=== PATIENT | male | born 1990 | race Hispanic/Latino ===

== ENCOUNTER 2018-03-07 07:53 | Inpatient (IN) | payer BC ==
[2018-03-07 08:57] LABS: BASO # 0.1 K/uL (0.0-0.2); BASO % 0.6 % (0.0-2.0); EOS # 0.2 K/uL (0.0-0.7); EOS % 1.2 % (0.0-4.0); HEMOGLOBIN 14.4 g/dL (12.0-18.0); LYMPH # 1.3 K/uL (1.0-4.3); MEAN CELL VOLUME 86.3 fL (80.0-94.0); MEAN CORPUSCULAR HEMOGLOBIN 29.5 pg (27.0-31.0); MEAN CORPUSCULAR HGB CONC 34.1 g/dL (33.0-37.0); MEAN PLATELET VOLUME 8.5 fL (7.2-11.7); MONO % 6.8 % (0.0-10.0); NEUT # 12.2 K/uL (1.8-7.0); NEUT % 82.4 % (50.0-75.0); PLATELET COUNT 290 K/uL (130-400); RBC 4.91 Mil/uL (4.40-5.90); RED CELL DISTRIBUTION WIDTH 12.6 % (11.5-14.5); WHITE BLOOD COUNT 14.8 K/uL (4.8-10.8)
[2018-03-07 09:32] LABS: ALB/GLOB RATIO 1.2 (1.0-2.1); ALBUMIN 4.6 g/dL (3.5-5.0); ALT/SGPT 38 U/L (21-72); AST/SGOT 30 U/L (17-59); BLOOD UREA NITROGEN 18 mg/dL (9-20); CALCIUM 9.2 mg/dl (8.6-10.4); GFR AFRICAN-AMERICAN > 60; GFR NON-AFRICAN AMERICAN > 60; LIPASE 81 U/L (23-300)
[2018-03-07] MEDS ORDERED: Piperacillin/Tazobact 3.375 GM in Sodium Chloride 100 ML IVPB STA (09:33)
--- NOTE | 2018-03-07 09:34 | CT ---
PROCEDURE: CT Abdomen and Pelvis without intravenous contrast HISTORY: abd pain COMPARISON: None. TECHNIQUE: Without contrast.. Contrast Dose: 0 Radiation dose: Total exam DLP = Total exam DLP = 555.26 mGy-cm. This CT exam was performed using one or more of the following dose reduction techniques: Automated exposure control, adjustment of the mA and/or kV according to patient size, and/or use of iterative reconstruction technique. FINDINGS: LOWER THORAX: Unremarkable. LIVER: Unremarkable. No gross lesion or ductal dilatation. GALLBLADDER AND BILE DUCTS: Unremarkable. PANCREAS: Unremarkable. No gross lesion or ductal dilatation. SPLEEN: Unremarkable. ADRENALS: Unremarkable. No mass. KIDNEYS AND URETERS: Unremarkable. No hydronephrosis. No solid mass. VASCULATURE: Unremarkable. No aortic aneurysm. BOWEL: Unremarkable. No obstruction. No gross mural thickening. APPENDIX: The appendix is distended up to 9 mm. There is mild periappendiceal inflammatory change particularly about the proximal aspect of the appendix. The findings are consistent with acute appendicitis. There is no periappendiceal abscess. There is no free intraperitoneal air. There is no calcified appendicolith identified. PERITONEUM: Unremarkable. No free fluid. No free air. LYMPH NODES: Unremarkable. No enlarged lymph nodes. BLADDER: Poorly distended REPRODUCTIVE: Unremarkable prostate BONES: No acute fracture. OTHER FINDINGS: None. IMPRESSION: Findings consistent with acute uncomplicated appendicitis. No periappendiceal abscess. No free air. No additional abnormality. The findings this examination were discussed by telephone with Dr. Way at 9:30 a.m. on 03/07/2018.
[2018-03-07 09:37] LABS: EOSINOPHIL 1 % (0-4); LYMPHOCYTE 6 % (20-40); MONOCYTE 3 % (0-10); NEUTROPHIL 90 % (50-75); PLATELET ESTIMATE NORMAL (NORMAL); TOTAL CELLS COUNTED 100
[2018-03-07 09:40] LABS: URINE BILIRUBIN NEGATIVE (NEGATIVE); URINE BLOOD NEGATIVE (NEGATIVE); URINE CLARITY Clear (Clear); URINE COLOR Yellow (YELLOW); URINE GLUCOSE (UA) NORMAL (Normal); URINE LEUKOCYTE ESTERASE NEG Leu/uL (Negative); URINE PROTEIN NEGATIVE (NEGATIVE)
--- NOTE | 2018-03-07 09:41 | C.PDOC ---
History Of Present Illness 27-year-old male, presents to the emergency department with complaints of right- lower quadrant abdominal pain x5 hours, associated with nausea. Patient denies symptoms, fever, testicular pain, or any other associated symptoms. No other complaints at this time. Time Seen by Provider: 03/07/18 08:25 Chief Complaint (Nursing): Abdominal Pain History Per: Patient History/Exam Limitations: no limitations Location Of Pain/Discomfort: RLQ Past Medical History Reviewed: Historical Data, Nursing Documentation, Vital Signs Vital Signs: Last Vital Signs Temp 99.3 F 03/07/18 08:05 Pulse 88 03/07/18 08:05 Resp 18 03/07/18 08:05 BP 137/80 03/07/18 08:05 Pulse Ox 98 03/07/18 09:46 Family History: States: No Known Family Hx - Social History Hx Alcohol Use: Yes Hx Substance Use: No Review Of Systems Constitutional: Negative for: Fever, Chills Cardiovascular: Negative for: Chest Pain, Palpitations Respiratory: Negative for: Shortness of Breath Gastrointestinal: Positive for: Nausea, Abdominal Pain Genitourinary: Negative for: Hematuria, Penile Discharge, Scrotal Pain Musculoskeletal: Negative for: Back Pain Skin: Negative for: Rash Physical Exam - Physical Exam Appears: Non-toxic, No Acute Distress Skin: Normal Color, Warm, Dry, No Rash Head: Normacephalic Eye(s): bilateral: PERRL Nose: Normal Oral Mucosa: Moist Lips: Normal Appearing Neck: Normal ROM Chest: Symmetrical Cardiovascular: Rhythm Regular, No Murmur Respiratory: Normal Breath Sounds, No Accessory Muscle Use Gastrointestinal/Abdominal: Soft, Tenderness (RLQ), No Guarding, No Rebound Extremity: Normal ROM, No Deformity, No Swelling Neurological/Psych: Oriented x3, Normal Speech ED Course And Treatment - Laboratory Results Result Diagrams: 03/07/18 08:52 03/07/18 08:52 O2 Sat by Pulse Oximetry: 98 (RA) Pulse Ox Interpretation: Normal Disposition Discussed With : Lorenzo Goddard Doctor Will See Patient In The: Hospital Counseled Patient/Family Regarding: Studies Performed, Diagnosis - Disposition Disposition: HOSPITALIZED Disposition Time: 10:17 Condition: FAIR Forms: [employer] (Latvian) - Clinical Impression Clinical Impression: Appendicitis - Scribe Statement The provider has reviewed the documentation as recorded by the Scribphilomena Willis All medical record entries made by the Madi were at my direction and personally dictated by me. I have reviewed the chart and agree that the record accurately reflects my personal performance of the history, physical exam, medical decision making, and the department course for this patient. I have also personally directed, reviewed, and agree with the discharge instructions and disposition.
[2018-03-07] MEDS ORDERED: Piperacillin/Tazobact 3.375 gm 0 ML IVPB ONE (09:45)
--- NOTE | 2018-03-07 10:44 | CP.PCM.HP ---
<Elba Champion - Last Filed: 03/07/18 10:31> History of Present Illness - History of Present Illness History of Present Illness: H&P: Dr. Goddard Pt is a 27M with no PMHx who presents to the ER with complaints of abdominal pain x 1 day. Pt states pain started overnight in the RLQ and and has been getting worse. He describes the pain as dull and worse with movement. States he' s never had a similar episode in the past. Denies N/V, F/C. In the ER, pt had a CT abdomen/pelvis which showed dilated appendix with inflammation consistent with acute appendicitis. PMHx: denies PSHx: denies SocialHx: denies smoking, EtOH/drugs NKDA Present on Admission - Present on Admission Any Indicators Present on Admission: No Review of Systems - Review of Systems All systems: reviewed and no additional remarkable complaints except (as per HPI ) Past Patient History - Past Medical History & Family History Past Medical History?: No Past Family History: Reviewed and not pertinent - Past Social History Smoking Status: Never Smoked - PSYCHIATRIC Hx Substance Use: No - SURGICAL HISTORY Hx Surgeries: No - ANESTHESIA Hx Anesthesia: No Meds Allergies/Adverse Reactions: Allergies Allergy/AdvReac Type Severity Reaction Status Date / Time No Known Allergies Allergy Verified 03/07/18 08:06 Physical Exam - Constitutional Appears: Well, No Acute Distress - Head Exam Head Exam: ATRAUMATIC, NORMOCEPHALIC - Eye Exam Eye Exam: Normal appearance - ENT Exam ENT Exam: Mucous Membranes Moist - Respiratory Exam Respiratory Exam: NORMAL BREATHING PATTERN - Cardiovascular Exam Cardiovascular Exam: RRR - GI/Abdominal Exam GI & Abdominal Exam: Soft, Tenderness (RLQ ). absent: Distended, Guarding, Rebound - Neurological Exam Neurological exam: Alert, Oriented x3 - Skin Skin Exam: Dry, Warm Results - Vital Signs Recent Vital Signs: Last Vital Signs Temp 99.3 F 03/07/18 08:05 Pulse 88 03/07/18 08:05 Resp 18 03/07/18 08:05 BP 137/80 03/07/18 08:05 Pulse Ox 98 03/07/18 10:18 - Labs Result Diagrams: 03/07/18 08:52 03/07/18 08:52 Labs: Laboratory Results - last 24 hr 03/07/18 03/07/18 03/07/18 08:52 08:52 09:32 WBC 14.8 H RBC 4.91 Hgb 14.4 Hct 42.3 MCV 86.3 MCH 29.5 MCHC 34.1 RDW 12.6 Plt Count 290 MPV 8.5 Neut % (Auto) 82.4 H Lymph % (Auto) 9.0 L Spink % (Auto) 6.8 Eos % (Auto) 1.2 Baso % (Auto) 0.6 Neut # (Auto) 12.2 H Lymph # (Auto) 1.3 Spink # (Auto) 1.0 H Eos # (Auto) 0.2 Baso # (Auto) 0.1 Neutrophils % (Manual) 90 H Lymphocytes % (Manual) 6 L Monocytes % (Manual) 3 Eosinophils % (Manual) 1 Platelet Estimate Normal RBC Morphology Normal Sodium 142 Potassium 4.2 Chloride 100 Carbon Dioxide 26 Anion Gap 20 BUN 18 Creatinine 1.1 Est GFR ( Amer) > 60 Est GFR (Non-Af Amer) > 60 Random Glucose 105 Calcium 9.2 Total Bilirubin 0.6 AST 30 ALT 38 Alkaline Phosphatase 78 Total Protein 8.4 H Albumin 4.6 Globulin 3.8 Albumin/Globulin Ratio 1.2 Lipase 81 Urine Color Yellow Urine Clarity Clear Urine pH 5.0 Ur Specific [place] 1.027 Urine Protein Negative Urine Glucose (UA) Normal Urine Ketones Negative Urine Blood Negative Urine Nitrate Negative Urine Bilirubin Negative Urine Urobilinogen 2.0 Ur Leukocyte Esterase Neg Urine WBC (Auto) < 1 Urine RBC (Auto) < 1 - Imaging and Cardiology CT scan - abdomen Status: Image reviewed by me, Report reviewed by me Assessment & Plan - Assessment and Plan (Free Text) Assessment: 27M with acute appendicitis Plan: - OR for lap appy this afternoon - keep NPO with IVF, IV ABX - pain management - d/w Dr. Rupesh Champion, PGY-3 <Lorenzo Goddard - Last Filed: 03/12/18 17:26> Results - Vital Signs Recent Vital Signs: Last Vital Signs Temp 98.9 F 03/08/18 07:20 Pulse 82 03/08/18 07:20 Resp 18 03/08/18 07:20 BP 105/66 03/08/18 07:20 Pulse Ox 98 03/08/18 07:20 - Labs Result Diagrams: 03/07/18 08:52 04/23/18 08:52 Attending/Attestation - Attestation I have personally seen and examined this patient.: Yes I have fully participated in the care of the patient.: Yes I have reviewed all pertinent clinical information: Yes Notes (Text): Pt was seen and examined at bedside Agree with above note and assessment Pt with RLQ pain for 1 day RLQ tenderness Labs and radiology reviewed Ass: Acute Appendicitis Plan : OR for Lap Appendectomy possible Open Consent C.w IV antibiotics NPO, IVF Plan d.w pt in detail Risk and benefit explained in detail.
[2018-03-07 10:52] LABS: INR 1.1; PROTHROMBIN TIME 12.4 SECONDS (9.7-12.2)
[2018-03-07] MEDS ORDERED: Piperacillin/Tazobact 3.375 gm 100 ML IVPB ONE (15:16)
[2018-03-07] MEDS: Piperacill/Tazo 3.375gm in Dex 3.375 GM/50 ML BAG IVPB SCH ×2 (15:28→21:18)
[2018-03-07] MEDS ORDERED: Midazolam 2 MG/2 ML VIAL ONE (16:34)
[2018-03-07] MEDS ORDERED: Propofol 10 mg/ml Inj (20 ML) ONE (16:35)
[2018-03-07] MEDS ORDERED: Rocuronium 10 mg/ml (5 ml) ONE (16:36)
[2018-03-07] MEDS ORDERED: Succinylcholine Chloride 20 mg/ml Syr (5 ml) IV ONE (16:36)
[2018-03-07] MEDS: Lidocaine/Epinephrine 1% 1:100000 10 ML IJ ONE ×2 (16:49→16:56)
[2018-03-07] MEDS ORDERED: Neostigmine Methylsulfate 3mg/3ml Syringe IV ONE ×2 (17:40→17:43)
[2018-03-07] MEDS ORDERED: Atropine Sulfate 0.4 mg/ml (0.8mg/2ml) Syringe IV ONE (17:44)
[2018-03-07] MEDS ORDERED: Dexamethasone 4 mg/1 ml IVP PRN (17:53)
--- NOTE | 2018-03-07 17:53 | PCM.SURG1 ---
Surgeon's Initial Post Op Note - Surgeon's Notes Surgeon: Dr. Goddard Coil Finisher: Uyen Mckeon, PGY-1; Jose Lopez OMS-III Pre-Operative Diagnosis: Acute appendicitis Operative Findings: see op report Post-Operative Diagnosis: Acute appendicitis Operation Performed: Laparoscopic appendectomy Specimen/Specimens Removed: Appendix Estimated Blood Loss: EBL {In ML}: 10 Blood Products Given: N/A Drains Used: No Drains Post-Op Condition: Good Date of Surgery/Procedure: 03/07/18 Time of Surgery/Procedure: 17:52
[2018-03-07] MEDS ORDERED: Bupivacaine HCl 0.25% PF (30 ml) Inj ONE (17:56)
[2018-03-07] MEDS: HYDROmorphone 0.5 mg/0.5 ml ISec IVP PRN ×2 (18:02→18:17)
[2018-03-07] MEDS ORDERED: HYDROmorphone 0.5 mg/0.5 ml ISec ONE (18:02)
[2018-03-07] MEDS: Oxycodone/Acetaminophen 5/325 mg Tab PO PRN ×2 (19:13→23:48)
[2018-03-08 00:45] VITALS: O2SAT 98
[2018-03-08] MEDS: Piperacill/Tazo 3.375gm in Dex 3.375 GM/50 ML BAG IVPB SCH ×2 (03:45→08:55)
[2018-03-08 07:48] VITALS: BP 105/66; PULSE 82; RESP 18; TEMP 98.9
--- NOTE | 2018-03-08 07:51 | CP.PCM.DIS ---
Provider - Provider Date of Admission: 03/07/18 10:16 Attending physician: Lorenzo Goddard MD Primary care physician: General surgery - Dr. Goddard Consults: None Time Spent in preparation of Discharge (in minutes): 35 Diagnosis - Discharge Diagnosis (1) S/P laparoscopic appendectomy Status: Acute Hospital Course - Lab Results Lab Results: Most Recent Lab Values WBC 14.8 K/uL (4.8-10.8) H 03/07/18 08:52 RBC 4.91 Mil/uL (4.40-5.90) 03/07/18 08:52 Hgb 14.4 g/dL (12.0-18.0) 03/07/18 08:52 Hct 42.3 % (35.0-51.0) 03/07/18 08:52 MCV 86.3 fL (80.0-94.0) 03/07/18 08:52 MCH 29.5 pg (27.0-31.0) 03/07/18 08:52 MCHC 34.1 g/dL (33.0-37.0) 03/07/18 08:52 RDW 12.6 % (11.5-14.5) 03/07/18 08:52 Plt Count 290 K/uL (130-400) 03/07/18 08:52 MPV 8.5 fL (7.2-11.7) 03/07/18 08:52 Neut % (Auto) 82.4 % (50.0-75.0) H 03/07/18 08:52 Lymph % (Auto) 9.0 % (20.0-40.0) L 03/07/18 08:52 [place] % (Auto) 6.8 % (0.0-10.0) 03/07/18 08:52 Eos % (Auto) 1.2 % (0.0-4.0) 03/07/18 08:52 Baso % (Auto) 0.6 % (0.0-2.0) 03/07/18 08:52 Neut # (Auto) 12.2 K/uL (1.8-7.0) H 03/07/18 08:52 Lymph # (Auto) 1.3 K/uL (1.0-4.3) 03/07/18 08:52 [place]ner # (Auto) 1.0 K/uL (0.0-0.8) H 03/07/18 08:52 Eos # (Auto) 0.2 K/uL (0.0-0.7) 03/07/18 08:52 Baso # (Auto) 0.1 K/uL (0.0-0.2) 03/07/18 08:52 Neutrophils % (Manual) 90 % (50-75) H 03/07/18 08:52 Lymphocytes % (Manual) 6 % (20-40) L 03/07/18 08:52 Monocytes % (Manual) 3 % (0-10) 03/07/18 08:52 Eosinophils % (Manual) 1 % (0-4) 03/07/18 08:52 Platelet Estimate Normal (NORMAL) 03/07/18 08:52 RBC Morphology Normal 03/07/18 08:52 PT 12.4 SECONDS (9.7-12.2) H 03/07/18 10:35 INR 1.1 03/07/18 10:35 APTT 31 SECONDS (21-34) 03/07/18 10:35 Sodium 142 mmol/L (132-148) 03/07/18 08:52 Potassium 4.2 mmol/L (3.6-5.2) 03/07/18 08:52 Chloride 100 mmol/L (98-107) 03/07/18 08:52 Carbon Dioxide 26 mmol/L (22-30) 03/07/18 08:52 Anion Gap 20 (10-20) 03/07/18 08:52 BUN 18 mg/dL (9-20) 03/07/18 08:52 Creatinine 1.1 mg/dL (0.8-1.5) 03/07/18 08:52 Est GFR ( Amer) > 60 03/07/18 08:52 Est GFR (Non-Af Amer) > 60 03/07/18 08:52 Random Glucose 105 mg/dL (75-110) 03/07/18 08:52 Calcium 9.2 mg/dl (8.6-10.4) 03/07/18 08:52 Total Bilirubin 0.6 mg/dL (0.2-1.3) 03/07/18 08:52 AST 30 U/L (17-59) 03/07/18 08:52 ALT 38 U/L (21-72) 03/07/18 08:52 Alkaline Phosphatase 78 U/L (38-126) 03/07/18 08:52 Total Protein 8.4 g/dL (6.3-8.3) H 03/07/18 08:52 Albumin 4.6 g/dL (3.5-5.0) 03/07/18 08:52 Globulin 3.8 gm/dL (2.2-3.9) 03/07/18 08:52 Albumin/Globulin Ratio 1.2 (1.0-2.1) 03/07/18 08:52 Lipase 81 U/L (23-300) 03/07/18 08:52 Urine Color Yellow (YELLOW) 03/07/18 09:32 Urine Clarity Clear (Clear) 03/07/18 09:32 Urine pH 5.0 (5.0-8.0) 03/07/18 09:32 Ur Specific [place] 1.027 (1.003-1.030) 03/07/18 09:32 Urine Protein Negative mg/dL (NEGATIVE) 03/07/18 09:32 Urine Glucose (UA) Normal mg/dL (Normal) 03/07/18 09:32 Urine Ketones Negative mg/dL (NEGATIVE) 03/07/18 09:32 Urine Blood Negative (NEGATIVE) 03/07/18 09:32 Urine Nitrate Negative (NEGATIVE) 03/07/18 09:32 Urine Bilirubin Negative (NEGATIVE) 03/07/18 09:32 Urine Urobilinogen 2.0 mg/dL (0.2-1.0) 03/07/18 09:32 Ur Leukocyte Esterase Neg [place]fr[place]/uL (Negative) 03/07/18 09:32 Urine WBC (Auto) < 1 /hpf (0-5) 03/07/18 09:32 Urine RBC (Auto) < 1 /hpf (0-3) 03/07/18 09:32 Blood Type O POSITIVE 03/07/18 10:35 Antibody Screen Negative 03/07/18 10:35 - Hospital Course Hospital Course: 27M w/no sig PMH admitted with acute appendicitis. Pt taken to OR on day of admission for laparoscopic appendectomy without complication. Pt voided, tolerating diet, ambulating post op. Pt stable and ready for discharge home. Diagnosis Acute appendicitis s/p Laparoscopic appendectomy - Date & Time of H&P Date of H&P: 03/07/18 Time of H&P: 10:31 Discharge Exam - Head Exam Head Exam: ATRAUMATIC, NORMAL INSPECTION, NORMOCEPHALIC - Eye Exam Eye Exam: EOMI, Normal appearance - ENT Exam ENT Exam: Mucous Membranes Moist, Normal Exam - Neck Exam Neck exam: Full Rom, Normal Inspection - Respiratory Exam Respiratory Exam: NORMAL BREATHING PATTERN, UNREMARKABLE - Cardiovascular Exam Cardiovascular Exam: REGULAR RHYTHM, +S1, +S2 - GI/Abdominal Exam GI & Abdominal Exam: Soft, Tenderness (over surgical sites). absent: Diminished Bowel Sounds, Distended, Firm, Guarding, Rebound, Rigid Additional comments: Abdominal dressing clean/dry/intact - Extremities Exam Extremities exam: normal inspection - Neurological Exam Neurological exam: Alert, CN II-XII Intact, Oriented x3 - Psychiatric Exam Psychiatric exam: Normal Affect, Normal Mood - Skin Skin Exam: Dry, Intact, Normal Color, Warm Discharge Plan - Discharge Medications Prescriptions: Docusate Sodium [Colace] 100 mg PO TID 10 Days capsule Ketorolac Tromethamine [Toradol] 10 mg PO Q6H #20 tab - Follow Up Plan Condition: GOOD Disposition: HOME/ ROUTINE Instructions: Appendicitis, Adult (DC), Ketorolac (Systemic), Docusate, Appendectomy, Laparoscopic Surgery (DC), Managing Pain After Surgery Additional Instructions: No heavy lifting for 4-6 weeks. Ok to shower tomorrow, do not remove the bandaids for 5 days (cover with plastic while showering). Do not sit in a hot tub or bath. There is special tape under the bandaids, this will fall off on its own, ok to wash with soap and water (gently). Ok to resume normal diet. Please follow up with Dr. Goddard in 7-10 days after discharge. If you have constipation, please take the stool softener. If you take the pain medication, please take the stool softener as it can make you constipated. Do not strain to pass stool. Call Dr. Goddard office or come ot ER for fever >100.4 or any other concerning symptoms. Referrals: Lorenzo Goddard MD [Staff Provider] -
[2018-03-08] MEDS ORDERED: Oxycodone/Acetaminophen 5/325 mg Tab PO PRN (07:57)
--- NOTE | 2018-03-12 21:58 | OP ---
PROCEDURE DATE: 03/07/2018. PREOPERATIVE DIAGNOSIS: Acute appendicitis. POSTOPERATIVE DIAGNOSES: 1. Acute suppurative appendicitis. 2. Post infectious peritoneal adhesions PROCEDURES DONE: 1. Laparoscopic appendectomy. 2. Laparoscopic lysis of adhesions. SURGEON: Lorenzo Goddard MD. PRICING ASSOCIATE: Selene Mckeon, PGY-2 resident. ANESTHESIA: General endotracheal tube anesthesia. ESTIMATED BLOOD LOSS: Around 10 mL. DRAINS: None. PATHOLOGY: Appendix was sent for the pathology. COMPLICATIONS: None. INTRAOPERATIVE FINDINGS: The patient had acute appendicitis and post infectious and peritoneal adhesions. DESCRIPTION OF PROCEDURE: On intraoperative steps, this is a 27-year-old male with acute appendicitis and the patient was complaining of laparoscopic appendectomy, possible open, brought to the OR, placed supine on the operating table. After the induction of the anesthesia, the abdomen was prepped and draped in the usual sterile fashion. A supraumbilical transverse incision was made after incising the skin and subcutaneous tissue and the fascia. The [place] port was placed, pneumo was created. Another 5 mm port was placed in supraumbilical region, 12 mm port was placed in the left lower quadrant. After the grasper and dissector were introduced, the appendix appeared to be adhered to the omentum and it was in paracecal location and the first appendix was dissected. Extensive lysis of adhesions of peritoneal attachment and enterolysis was done. Mesoappendix was resected with harmonic and the base of the appendix was resected with stapler and there was a proper hemostasis in each and every part of the procedure. Now, the pelvis was checked and the gauze was placed into the pelvis to clean out the fluid as well as the collection and after proper cleaning of the pelvic as well as periappendicular area, appendix was sent off the table for the pathology. All the instruments were taken out and all the port was taken out, under vision pneumo was deflated, umbilical port size was closed in two layers, the fascia with 0 Vicryl interrupted sutures, skin with 4-0 Monocryl and dry sterile dressing was applied. The patient tolerated the procedure well. Count of instrument and gauze was correct. There was no apparent complication. The patient was extubated in OR, sent to the Postanesthesia Care Unit in stable condition. Lorenzo Goddard MD [place]
== END 2018-03-08 12:13 | disposition home or self-care (01) | DRG 337 ==
LOC: C.ER 07:53 → C.9E 10:16 → C.6T 13:25
PROVIDERS: ADMIT Surgery Surgical Critical Care; ATTEND Surgery Surgical Critical Care
PROC: 0DNW4ZZ Release Peritoneum, Percutaneous Endoscopic Approach (ICD-10-PCS; 2018-03-07)
PROC: 0DTJ4ZZ Resection of Appendix, Percutaneous Endoscopic Approach (ICD-10-PCS; principal; 2018-03-07 20:15)
DX: K35.80 Unspecified acute appendicitis (principal); K66.0 Peritoneal adhesions (postprocedural) (postinfection)